=== PATIENT | male | born 1975 | race Caucasian/White ===

== ENCOUNTER → 2016-10-28 | Outpatient (CLI) | payer OTHER ==
--- NOTE | 2016-10-28 12:26 | EST ---
DATE OF SERVICE: 10/28/2016 AGE: 40Y SEX: M HT: 68" WT: 250 lbs. Protocol Gigi: X Other: Stress Stage: 3 Dur. of Exercise: 7:11 *Heart Rate Blood Pressure *Rest: 101 Rest: 110/93 * *Max. Achieved: 157 Maximum BP: 163/95 85% PMHR: 151 100% PMHR: 179 *METS: 8.7 INDICATIONS: Chest pain. MEDICATIONS: Hyzaar, Claritin, aspirin, vitamins. Baseline EKG revealed normal sinus rhythm without significant ST-T changes. Patient walked on standard Gigi protocol for 7 minutes 11 seconds, achieved a maximum heart rate of 157 beats per minute, more than 85% predicted maximum. Had some right shoulder discomfort and right-sided chest discomfort, very atypical, not suggestive of angina. He developed fatigue and shortness of breath. He achieved more than 85% of predicted maximal. There was no evidence of any ST segment changes to indicate ischemia. Rare isolated PVC was noted. By EKG criteria, this is a negative stress test with limited exercise capacity with atypical chest pain.
--- NOTE | 2016-10-28 12:47 | XR ---
EXAMINATION TYPE: XR chest 2V DATE OF EXAM: 10/28/2016 12:41 PM COMPARISON: NONE HISTORY: Chest pain TECHNIQUE: Frontal and lateral views of the chest are obtained. FINDINGS: There is no focal air space opacity. No evidence for pnuemothorax.No pleural effusion. The cardiac silhouette size is within normal limits. The osseous structures are grossly intact. IMPRESSION: 1. No acute cardiopulmonary process.
--- NOTE | 2016-10-29 10:36 | ECHOF ---
Referral Reason: MEASUREMENTS -------- HEIGHT: 172.7 cm WEIGHT: 113.4 kg BP: 110/93 RVIDd: 3.3 cm (< 3.3) IVSd: 0.9 cm (0.6 - 1.1) LVIDd: 5.3 cm (3.9 - 5.3) LVPWd: 1.1 cm (0.6 - 1.1) IVSs: 1.5 cm LVIDs: 3.6 cm LVPWs: 1.6 cm LA Diam: 3.5 cm (2.7 - 3.8) LAESV Index (A-L): 11.78 ml/m Ao Diam: 3.2 cm (2.0 - 3.7) AV Cusp: 2.3 cm (1.5 - 2.6) MV EXCURSION: 11.453 mm (> 18.000) MV EF SLOPE: 40 mm/s (70 - 150) EPSS: 0.9 cm MV E Nav: 0.71 m/s MV DecT: 155 ms MV A Nav: 0.63 m/s MV E/A Ratio: 1.14 FINDINGS -------- Sinus rhythm. This was a technically adequate study. The left ventricular size is normal. Left ventricular wall thickness is normal. Overall left ventricular systolic function is normal with, an EF between 55 - 60 %. The right ventricle is mildly enlarged. Normal LA size by volume 22+/-6 ml/m2. The right atrium is normal in size. The aortic valve is trileaflet and appears structurally normal. The mitral valve is normal. The tricuspid valve appears structurally normal. The pulmonic valve is normal. The aortic root, ascending aorta and aortic arch are normal. IVC Not well visulized. The pericardium is normal. CONCLUSIONS -------- 1. Sinus rhythm. 2. The tricuspid valve appears structurally normal. 3. The pulmonic valve is normal. 4. The aortic root, ascending aorta and aortic arch are normal. 5. The pericardium is normal. 6. This was a technically adequate study. 7. The left ventricular size is normal. 8. Left ventricular wall thickness is normal. 9. The right ventricle is mildly enlarged. 10. Normal LA size by volume 22+/-6 ml/m2. 11. The right atrium is normal in size. 12. The aortic valve is trileaflet and appears structurally normal. 13. The mitral valve is normal. ASSEMBLER [employer]: Iva Meyer RDCS
== END | disposition home or self-care (01) ==
LOC: RADNMMAIN 11:17
PROVIDERS: ATTEND Family Medicine
DX: I10 Essential (primary) hypertension (principal); R07.89 Other chest pain
CPT/HCPCS: 71020; 93017; 93306

== ENCOUNTER 2017-09-05 21:29 | Observation (INO) | payer OTHER ==
[2017-09-05 22:30] LABS: Glucose,Whole Blood 132 mg/dL (75-99)
[2017-09-05 22:36] LABS: Basophils % (A) 1 %; Eosinophils # (A) 0.2 k/uL (0-0.7); Eosinophils % (A) 2 %; HCT 46.6 % (39.0-53.0); HGB 15.7 gm/dL (13.0-17.5); Lymphocytes # (A) 2.6 k/uL (1.0-4.8); Lymphocytes % (A) 30 %; MCH 32.4 pg (25.0-35.0); MCHC 33.6 g/dL (31.0-37.0); MCV 96.6 fL (80.0-100.0); Mean Platelet Volume 7.1; Monocytes # (A) 0.4 k/uL (0-1.0); Monocytes % (A) 5 %; Neutrophils # (A) 5.2 k/uL (1.3-7.7); Neutrophils % (A) 61 %; Platelet Count 230 k/uL (150-450); RBC 4.82 m/uL (4.30-5.90); WBC 8.6 k/uL (3.8-10.6)
[2017-09-05 22:47] LABS: ALT 41 U/L (21-72); AST 37 U/L (17-59); Albumin 4.4 g/dL (3.5-5.0); Alkaline Phosphatase 82 U/L (38-126); Anion Gap 11 mmol/L; Blood Urea Nitrogen 13 mg/dL (9-20); Calcium 9.7 mg/dL (8.4-10.2); Carbon Dioxide 28 mmol/L (22-30); Chloride 101 mmol/L (98-107); Glucose 113 mg/dL (74-99); Potassium 4.2 mmol/L (3.5-5.1); Sodium 140 mmol/L (137-145); Total Bilirubin 0.6 mg/dL (0.2-1.3); Total Protein 7.5 g/dL (6.3-8.2)
--- NOTE | 2017-09-05 23:25 | ED ---
Dizziness HPI - General Chief Complaint: Dizziness Stated Complaint: Blurry vision, dizzy Time Seen by Provider: 09/05/17 23:00 Source: patient, family, RN notes reviewed Mode of arrival: wheelchair Limitations: no limitations - History of Present Illness Initial Comments: Is a 41-year-old male who presents with complaints of one week of blurry vision for distance vision intermittent episodes of chest pain shortness of breath dizziness. He also states he had been urinating blood for about a week there is concern about a kidney stone versus infection he was seen in outpatient clinic apparently the UA was negative for infection he also states that he got up from 8:00 this morning and checked his phone He was 11:00 in the morning he was on the floor that sure how he got there is no injury to report. Currently he has no chest pain shortness of breath he does have some blurred vision with right lateral gaze. Patient is obstructed family history of both CVA and heart disease and his family. MD Complaint: dizziness, lightheadedness, other - Related Data Home Medications Medication Instructions Recorded Confirmed Kristina Killian [place] 1 cap PO DAILY 09/05/17 09/05/17 Aspirin EC [Ecotrin Low Dose] 81 mg PO DAILY 09/05/17 09/05/17 [id number] 1 - 2 tab PO Q4HR PRN 09/05/17 09/05/17 [Excedrin] C-Salts Buffered Vitamin C 1 tsp PO DAILY 09/05/17 09/05/17 Dextroamphetamine/Amphetamine 15 mg PO DAILY 09/05/17 09/05/17 [Adderall] Grass Fed Organ Complex 1 cap PO DAILY 09/05/17 09/05/17 HYDROcodone/APAP 5-325MG [[place] 1 tab PO Q6H PRN 09/05/17 09/05/17 5-325] Losartan/Hydrochlorothiazide 1 tab PO DAILY 09/05/17 09/05/17 [Hyzaar 100-25 Tablet] Phospatidyl Choline 1 cap PO DAILY 09/05/17 09/05/17 Reishi 1 cap PO DAILY 09/05/17 09/05/17 Tamsulosin HCl [Flomax] 0.4 mg PO DAILY 09/05/17 09/05/17 Zinc Picolinate 1 cap PO DAILY 09/05/17 09/05/17 Allergies Allergy/AdvReac Type Severity Reaction Status Date / Time No Known Allergies Allergy Verified 09/05/17 22:23 Review of Systems ROS Statement: Those systems with pertinent positive or pertinent negative responses have been documented in the HPI. ROS Other: All systems not noted in ROS Statement are negative. Past Medical History Past Medical History: Hypertension History of Any Multi-Drug Resistant Organisms: None Reported Past Surgical History: No Surgical Hx Reported Past Psychological History: Anxiety Smoking Status: Never smoker Past Alcohol Use History: None Reported Past Drug Use History: None Reported General Exam - General Exam Comments Initial Comments: This is a well-developed well-nourished awake alert oriented 3 male Limitations: no limitations General appearance: alert, in no apparent distress Head exam: Present: atraumatic, normocephalic, normal inspection Eye exam: Present: normal appearance, PERRL, EOMI. Absent: scleral icterus, conjunctival injection, periorbital swelling ENT exam: Present: normal exam, mucous membranes moist Neck exam: Present: normal inspection. Absent: tenderness, meningismus, lymphadenopathy Respiratory exam: Present: normal lung sounds bilaterally. Absent: respiratory distress, wheezes, rales, rhonchi, stridor Cardiovascular Exam: Present: normal rhythm, tachycardia, normal heart sounds. Absent: systolic murmur, diastolic murmur, rubs, gallop, clicks GI/Abdominal exam: Present: soft, normal bowel sounds. Absent: distended, tenderness, guarding, rebound, rigid Extremities exam: Present: normal inspection, full ROM, normal capillary refill. Absent: tenderness, pedal edema, joint swelling, calf tenderness Back exam: Present: normal inspection Neurological exam: Present: alert, oriented X3, CN II-XII intact Psychiatric exam: Present: normal affect, normal mood Skin exam: Present: warm, dry, intact, normal color. Absent: rash Course Vital Signs 09/05/17 09/05/17 21:34 23:53 Temperature 97.7 F Pulse Rate 120 H 104 H Respiratory 18 18 Rate Blood Pressure 119/80 156/87 O2 Sat by Pulse 100 98 Oximetry - Reevaluation(s) Reevaluation #1: 09/06/17 01:02 Reevaluation patient reveals no change in his status at this time he has no new symptoms. EKG Findings - EKG Results: EKG: interpreted by ISAK, sinus rhythm (Sinus tachycardia rate of 113 MO interval 150 QRS duration 66 QT since QTC of 336/[address]-T wave changes) Medical Decision Making - Medical Decision Making I did discuss the findings with the patient and family members as well as Dr. Woodson. Patient will be admitted for evaluation of syncope and chest pain. - Lab Data Result diagrams: 09/05/17 22:12 09/05/17 22:12 Lab Results 09/05/17 09/05/17 09/05/17 Range/Units 22:12 22:12 22:12 WBC 8.6 (3.8-10.6) k/uL RBC 4.82 (4.30-5.90) m/uL Hgb 15.7 (13.0-17.5) gm/dL Hct 46.6 (39.0-53.0) % MCV 96.6 (80.0-100.0) fL MCH 32.4 (25.0-35.0) pg MCHC 33.6 (31.0-37.0) g/dL RDW 13.0 (11.5-15.5) % Plt Count 230 (150-450) k/uL Neutrophils % 61 % Lymphocytes % 30 % Monocytes % 5 % Eosinophils % 2 % Basophils % 1 % Neutrophils # 5.2 (1.3-7.7) k/uL Lymphocytes # 2.6 (1.0-4.8) k/uL Monocytes # 0.4 (0-1.0) k/uL Eosinophils # 0.2 (0-0.7) k/uL Basophils # 0.0 (0-0.2) k/uL PT 10.5 (9.0-12.0) sec INR 1.1 (<1.2) D-Dimer (<0.60) mg/L FEU Sodium 140 (137-145) mmol/L Potassium 4.2 (3.5-5.1) mmol/L Chloride 101 (98-107) mmol/L Carbon Dioxide 28 (22-30) mmol/L Anion Gap 11 mmol/L BUN 13 (9-20) mg/dL Creatinine 0.80 (0.66-1.25) mg/dL Est GFR (CKD-EPI)AfAm >90 (>60 ml/min/1.73 sqM) Est GFR (CKD-EPI)NonAf >90 (>60 ml/min/1.73 sqM) Glucose 113 H (74-99) mg/dL POC Glucose (mg/dL) (75-99) mg/dL POC Glu Splicing Supervisor ID Calcium 9.7 (8.4-10.2) mg/dL Magnesium (1.6-2.3) mg/dL Total Bilirubin 0.6 (0.2-1.3) mg/dL AST 37 (17-59) U/L ALT 41 (21-72) U/L Alkaline Phosphatase 82 (38-126) U/L Troponin I (0.000-0.034) ng/mL Total Protein 7.5 (6.3-8.2) g/dL Albumin 4.4 (3.5-5.0) g/dL TSH (0.465-4.680) mIU/L 09/05/17 09/05/17 09/05/17 Range/Units 22:12 22:12 22:12 WBC (3.8-10.6) k/uL RBC (4.30-5.90) m/uL Hgb (13.0-17.5) gm/dL Hct (39.0-53.0) % MCV (80.0-100.0) fL MCH (25.0-35.0) pg MCHC (31.0-37.0) g/dL RDW (11.5-15.5) % Plt Count (150-450) k/uL Neutrophils % % Lymphocytes % % Monocytes % % Eosinophils % % Basophils % % Neutrophils # (1.3-7.7) k/uL Lymphocytes # (1.0-4.8) k/uL Monocytes # (0-1.0) k/uL Eosinophils # (0-0.7) k/uL Basophils # (0-0.2) k/uL PT (9.0-12.0) sec INR (<1.2) D-Dimer 0.21 (<0.60) mg/L FEU Sodium (137-145) mmol/L Potassium (3.5-5.1) mmol/L Chloride (98-107) mmol/L Carbon Dioxide (22-30) mmol/L Anion Gap mmol/L BUN (9-20) mg/dL Creatinine (0.66-1.25) mg/dL Est GFR (CKD-EPI)AfAm (>60 ml/min/1.73 sqM) Est GFR (CKD-EPI)NonAf (>60 ml/min/1.73 sqM) Glucose (74-99) mg/dL POC Glucose (mg/dL) (75-99) mg/dL POC Glu Splicing Supervisor ID Calcium (8.4-10.2) mg/dL Magnesium 2.2 (1.6-2.3) mg/dL Total Bilirubin (0.2-1.3) mg/dL AST (17-59) U/L ALT (21-72) U/L Alkaline Phosphatase (38-126) U/L Troponin I <0.012 (0.000-0.034) ng/mL Total Protein (6.3-8.2) g/dL Albumin (3.5-5.0) g/dL TSH 0.891 (0.465-4.680) mIU/L 09/05/17 Range/Units 22:26 WBC (3.8-10.6) k/uL RBC (4.30-5.90) m/uL Hgb (13.0-17.5) gm/dL Hct (39.0-53.0) % MCV (80.0-100.0) fL MCH (25.0-35.0) pg MCHC (31.0-37.0) g/dL RDW (11.5-15.5) % Plt Count (150-450) k/uL Neutrophils % % Lymphocytes % % Monocytes % % Eosinophils % % Basophils % % Neutrophils # (1.3-7.7) k/uL Lymphocytes # (1.0-4.8) k/uL Monocytes # (0-1.0) k/uL Eosinophils # (0-0.7) k/uL Basophils # (0-0.2) k/uL PT (9.0-12.0) sec INR (<1.2) D-Dimer (<0.60) mg/L FEU Sodium (137-145) mmol/L Potassium (3.5-5.1) mmol/L Chloride (98-107) mmol/L Carbon Dioxide (22-30) mmol/L Anion Gap mmol/L BUN (9-20) mg/dL Creatinine (0.66-1.25) mg/dL Est GFR (CKD-EPI)AfAm (>60 ml/min/1.73 sqM) Est GFR (CKD-EPI)NonAf (>60 ml/min/1.73 sqM) Glucose (74-99) mg/dL POC Glucose (mg/dL) 132 H (75-99) mg/dL POC Glu Splicing Supervisor Alia Quinonez Calcium (8.4-10.2) mg/dL Magnesium (1.6-2.3) mg/dL Total Bilirubin (0.2-1.3) mg/dL AST (17-59) U/L ALT (21-72) U/L Alkaline Phosphatase (38-126) U/L Troponin I (0.000-0.034) ng/mL Total Protein (6.3-8.2) g/dL Albumin (3.5-5.0) g/dL TSH (0.465-4.680) mIU/L - Radiology Data Radiology results: report reviewed (I did review the imaging and reports no acute findings.), image reviewed Critical Care Time Critical Care Time: Yes Critical Care Time: 35 minutes of critical care time which includes initial presentation with history physical labs x-rays reevaluation the patient. Discussed with patient family regarding the findings. Discussion with the admitting physician. Admission orders and documentation of the same. Disposition Clinical Impression: Syncope and collapse, Chest pain, Sinus tachycardia Disposition: ADMITTED IP TO THIS [facility] Condition: Stable Referrals: Elliot Molina DO [Primary Care Provider] - 1-2 days
[2017-09-05 23:29] LABS: INR 1.1 (<1.2); Prothrombin Time 10.5 sec (9.0-12.0)
--- NOTE | 2017-09-05 23:39 | XR ---
EXAMINATION TYPE: XR chest 2V DATE OF EXAM: 09/05/2017 COMPARISON: 10/28/2016 HISTORY: Cough TECHNIQUE: Frontal and lateral views of the chest are obtained. FINDINGS: Heart and mediastinum are normal. Lungs are clear. Diaphragm is normal. There are chest le ads. Bony thorax is intact. There is no sign of pleural effusion. IMPRESSION: Normal chest. No change.
--- NOTE | 2017-09-05 23:40 | CT ---
EXAMINATION TYPE: CT brain wo con DATE OF EXAM: 09/05/2017 COMPARISON: NONE HISTORY: dizzy CT DLP: 1070.90 mGycm. Automated Exposure Control for Dose Reduction was Utilized. TECHNIQUE: CT scan of the head is performed without contrast. FINDINGS: Ventricles and sulci appear normal. There is no mass effect nor midline shift. There is no sign of intracranial hemorrhage. The calvarium appears intact. CONCLUSION: Negative CT scan of the brain.
[2017-09-05 23:46] LABS: Magnesium 2.2 mg/dL (1.6-2.3)
[2017-09-06] MEDS: SODIUM CHLORIDE 0.9% 1,000 ML IV SCH (01:23)
[2017-09-06] MEDS: NON-FORMULARY DRUG (Dextroamphetamine/Amphetamine [Adderall] 15 MG) PO SCH (08:46)
[2017-09-06] MEDS ORDERED: TAMSULOSIN 0.4 MG CAP.ER.24H PO SCH (09:00)
[2017-09-06] MEDS ORDERED: LOSARTAN-HCTZ 50-12.5 MG 1 EACH TAB PO SCH (09:00)
[2017-09-06] MEDS: valACYclovir HCL 1,000 MG TABLET PO SCH ×2 (10:51→21:31)
--- NOTE | 2017-09-06 12:13 | CONS ---
CONSULTATION Mark Khalil is a 41-year-old male patient who has been complaining of blurring of vision for distant vision intermittently as well as dizziness. He stated he got up in the morning and then apparently passed out and was on the floor until 11 a.m. almost 3 to 4 hours. He also had blood in his urine for about a week. MEDICATIONS: Medications at home include aspirin, Adderall, losartan hydrochlorothiazide and multiple other medications over the counter. ALLERGIES: No known drug allergies. REVIEW OF SYSTEMS: No fever, chills, or rigors. No cough or expectoration. No nausea, vomiting, diarrhea. He did have hematuria. We are not sure what happened, but he states he found himself on the floor lying on the floor and almost 3 hours. PAST HISTORY: Past history of hypertension, anxiety. SOCIAL HISTORY: No history of alcohol use. No history of smoking. PHYSICAL EXAMINATION: On examination, he is afebrile, 97.7 degrees Fahrenheit, pulse rate was 104 beats per minute, blood pressure 119/80 mmHg, pulse ox normal. Heart sounds S1, S2 are normal. No murmurs, no gallops, no rub. Head and neck examination is normal. Extremities are warm, no edema. LABS: Labs are reviewed. Hemoglobin is normal. Electrolytes are normal. The white count was normal. Cardiac enzymes are normal. TSH was pending. D-dimer was normal. IMPRESSION: One episode of loss of consciousness that was quite prolonged. The 12-lead ECG shows sinus tachycardia. No ST-segment abnormalities. No arrhythmias were noted so far. His CT of the brain was negative. Chest x-ray was normal. SUGGEST: Continue telemetry monitoring, 2-D echo and Doppler study. Continue antihypertensive therapy and neurologic workup. MMODL / IJN: [id number] /
[2017-09-06] MEDS: HYDROcodone/APAP 5-325MG 1 EACH TAB PO PRN ×2 (14:59→21:31)
--- NOTE | 2017-09-06 15:35 | US ---
EXAMINATION TYPE: US carotid duplex BILAT DATE OF EXAM: 09/06/2017 COMPARISON: NONE CLINICAL HISTORY: Stenosis. EXAM MEASUREMENTS: RIGHT: Peak Systolic Velocity (PSV) cm/sec ----- Right CCA: 81.7 ----- Right ICA: 58.6 ----- Right ECA: 103.0 ICA/CCA ratio: 0.7 RIGHT: End Diastole cm/sec ----- Right CCA: 25.3 ----- Right ICA: 21.2 ----- Right ECA: 15.0 LEFT: Peak Systolic Velocity (PSV) cm/sec ----- Left CCA: 87.8 ----- Left ICA: 60.0 ----- Left ECA: 88.7 ICA/CCA ratio: 0.7 LEFT: End Diastole cm/sec ----- Left CCA: 20.2 ----- Left ICA: 28.1 ----- Left ECA: 12.0 VERTEBRALS (direction of flow): Right Vertebral: Antegrade Left Vertebral: Antegrade Rhythm: Normal No significant velocity elevations, minimal plaque. IMPRESSION: 1. Mild plaquing and intimal thickening without significant flow-limiting stenosis. Criteria for Assigning % of Stenosis / Diameter reduction (Estimation based on the indirect measurements of the internal carotid artery velocities (ICA PSV). 1. Normal (no stenosis)=ICA PSV < 125 cm/s: ratio < 2.0: ICA EDV<40 cm/s. 2. Less than 50% stenosis=ICA PSV < 125 cm/s: ratio < 2.0: ICA EDV<40 cm/s. 3. 50 to 69% stenosis=ICA PSV of 125 to 230 cm/s: ration 2.0 ? 4.0: ICA EDV 40-100 cm/s. 4. Greater than 70% stenosis to near occlusion= ICA PSV > 230 cm/s: ratio > 4.0: ICA EDV > 100 cm/s. 5. Near occlusion= ICA PSV velocities may be low or undetectable: variable ratio and ICA EDV. 6. Total occlusion=unable to detect flow.
--- NOTE | 2017-09-06 18:46 | ECHOF ---
Referral Reason:Thrombus MEASUREMENTS -------- HEIGHT: 175.3 cm WEIGHT: 113.4 kg BP: 131/78 RVIDd: 2.8 cm (< 3.3) IVSd: 1.1 cm (0.6 - 1.1) LVIDd: 2.5 cm (3.9 - 5.3) LVPWd: 1.2 cm (0.6 - 1.1) IVSs: 1.6 cm LVIDs: 1.6 cm LVPWs: 1.8 cm Ao Diam: 3.3 cm (2.0 - 3.7) AV Cusp: 1.8 cm (1.5 - 2.6) LA Diam: 2.9 cm (2.7 - 3.8) MV EXCURSION: 17.570 mm (> 18.000) MV EF SLOPE: 123 mm/s (70 - 150) EPSS: 0.9 cm MV E Nav: 0.70 m/s MV DecT: 159 ms MV A Nav: 0.73 m/s MV E/A Ratio: 0.97 RAP: 5.00 mmHg RVSP: 17.74 mmHg FINDINGS -------- Sinus rhythm. This was a technically difficult study with suboptimal views. The left ventricular size is normal. Left ventricular wall thickness is normal. Overall left vent ricular systolic function is normal with, an EF between 55 - 60 %. The right ventricle is normal in size. The left atrium is normal in size. The right atrium is normal in size. The aortic valve is trileaflet, and appears structurally normal. No aortic stenosis or regurgitation. There is trace mitral regurgitation. Trace tricuspid regurgitation present. The right ventricular systolic pressure, as measured by Dopp ler, is 17.74mmHg. Pulmonic valve appears structurally normal. The aortic root size is normal. The pericardium is normal. CONCLUSIONS -------- 1. Sinus rhythm. 2. This was a technically difficult study with suboptimal views. 3. The left ventricular size is normal. 4. Left ventricular wall thickness is normal. 5. Overall left ventricular systolic function is normal with, an EF between 55 - 60 %. 6. The right ventricle is normal in size. 7. The left atrium is normal in size. 8. The right atrium is normal in size. 9. LUMASON USED 10. The aortic valve is trileaflet, and appears structurally normal. No aortic stenosis or regurgitat ion. 11. There is trace mitral regurgitation. 12. Trace tricuspid regurgitation present. 13. The right ventricular systolic pressure, as measured by Doppler, is 17.74mmHg. 14. Pulmonic valve appears structurally normal. 15. The aortic root size is normal. 16. The pericardium is normal. CUSTOM FRAME ASSEMBLER: Brittni Lema RDCS
--- NOTE | 2017-09-06 19:55 | P.HPIM ---
History of Present Illness H&P Date: 09/06/17 Chief Complaint: Syncope This is a 41-year-old gentleman patient of Dr. Molina with multiple complaints on presentation, he has underlying history of hypertension, kidney stones, admitted to the emergency room with complaints of blurred vision, for the past several days now at least 2 weeks, he sought to have his eyes checked and got new glasses, this did not resolve the issue. Patient complains of blurred vision rather than diplopia, along with shortness of breath, and hematuria. Patient also has chest pain chest discomfort, and was thinking that his ribs are cracking or popping, patient denies any trauma, recently he was started on an antibiotic for urinary tract infection, against a kidney stone. They have called that the patient does not require any antibiotic eyes the cultures are negative. 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 Patient also mentions that this is a recurrent nature for him, and is triggered by bending or squatting. No history of seizures, he is on diuretics, and Adderall. He was admitted through the emergency room with the syncopal events, dizziness, and blurred vision consult were made with neurology and cardiology, MRI of the brain was requested, carotid Dopplers shows no hemodynamically significant stenosis, echocardiogram shows normal sinus rhythm EF 55-60%, no aortic stenosis , mild TR and mild MR, no pericardial effusion LV thickness is normal without any hypertrophic change CT of the brain shows no acute bleed or ischemic event, chest x-ray no change normal chest x-ray Review of Systems Constitutional: Reports as per HPI, Denies anorexia, Denies chills, Denies chronic headaches, Denies chronic pain, Denies daytime sleepiness, Denies fatigue, Denies fever, Denies lethargy, Denies malaise, Denies night sweats, Denies poor appetite, Denies sweats, Denies weakness, Denies weight gain, Denies weight loss Ears, nose, mouth and throat: Reports as per HPI, Denies ant. neck pain, Denies bleeding gums, Denies dental pain, Denies dysphagia, Denies epistaxis, Denies headache, Denies hoarseness, Denies mouth pain, Denies nasal congestion, Denies nasal discharge, Denies neck fullness/pressure, Denies neck lump, Denies nose pain, Denies odynophagia, Denies post-nasal drip, Denies sinus pain, Denies sinus pressure, Denies swelling in mouth, Denies swelling in throat, Denies sore throat, Denies vertigo, Denies voice changes Cardiovascular: Reports as per HPI, Reports lightheadedness, Reports syncope, Denies chest pain, Denies claudication, Denies decreased exercise tolerance, Denies dyspnea on exertion, Denies edema, Denies high blood pressure, Denies irregular heart beat, Denies leg edema, Denies orthopnea, Denies palpitations, Denies paroxysmal nocturnal dyspnea, Denies phlebitis, Denies rapid heart beat, Denies shortness of breath Respiratory: Reports as per HPI, Denies congestion, Denies cough, Denies cough with sputum, Denies dyspnea, Denies excessive sputum, Denies hemoptysis, Denies home oxygen, Denies pain, Denies pain on inspiration, Denies pleurisy, Denies respiratory infections, Denies sleep apnea, Denies snoring, Denies wheezing Gastrointestinal: Reports as per HPI Genitourinary: Reports as per HPI, Denies decreased libido, Denies difficulties fathering child, Denies discharge, Denies dysuria, Denies erectile dysfunction, Denies flank pain, Denies genital pain, Denies genital sores, Denies hematuria, Denies impotence, Denies incontinence, Denies kidney stones, Denies nocturia, Denies polyuria, Denies testicular lump, Denies testicular pain, Denies urinary frequency, Denies urinary hesitancy, Denies urinary retention Musculoskeletal: Reports as per HPI, Denies arm numbness/tingling, Denies atrophy, Denies fractures, Denies frequent falls, Denies gait dysfunction, Denies hot joints, Denies leg numbness/tingling, Denies limitation of motion, Denies loss of height, Denies low back pain, Denies morning stiffness, Denies muscle cramps, Denies muscle weakness, Denies myalgias, Denies neck pain, Denies neck stiffness, Denies prior amputations, Denies redness of joints, Denies shooting arm pain, Denies shooting leg pain Integumentary: Reports as per HPI, Denies acne, Denies boils, Denies brittle nails, Denies change in hair/nails, Denies color changes, Denies darkening of skin, Denies depigmentation, Denies dryness, Denies foot/leg ulcers, Denies growths, Denies hirsutism, Denies lesions, Denies onychomycosis, Denies pruritus , Denies rash, Denies sores, Denies striae, Denies unusual bruising, Denies wounds Neurological: Reports as per HPI, Denies aphasia, Denies ataxia, Denies balance difficulties, Denies burning pain, Denies change in mentation, Denies change in smell/taste, Denies change in speech, Denies confusion, Denies convulsions, Denies double vision, Denies gait dysfunction, Denies head injury, Denies headaches, Denies hearing difficulties, Denies lack of coordination, Denies loss of vision, Denies memory loss, Denies migraines, Denies motor disturbance, Denies numbness, Denies paralysis, Denies paresthesias, Denies seizures, Denies sensory deficit, Denies spasticity, Denies syncope, Denies tic, Denies tingling , Denies transient paralysis, Denies tremors, Denies vertigo, Denies weakness, Denies visual changes Psychiatric: Reports as per HPI, Denies anhedonia, Denies anxiety, Denies anxiety attacks, Denies change in appetite, Denies change in libido, Denies change in sleep habits, Denies confusion, Denies depression, Denies difficulty concentrating, Denies disorientation, Denies hallucinations, Denies hopelessness , Denies hypersomnia, Denies insomnia, Denies irritability, Denies memory loss, Denies mood swings, Denies paranoia, Denies sadness/tearfulness, Denies sleep disturbances, Denies suicidal ideation Endocrine: Reports as per HPI, Denies cold intolerance, Denies deepening of the voice, Denies excessive sweating, Denies excessive thirst, Denies fatigue, Denies flushing, Denies heat intolerance, Denies high blood sugars, Denies increase in ring/shoe/hat size, Denies low blood sugars, Denies nocturia, Denies palpitations, Denies polydipsia, Denies polyphagia, Denies polyuria, Denies proptosis, Denies recent glucocorticoid use, Denies thyroid mass, Denies weight change Hematologic/Lymphatic: Reports as per HPI, Denies easy bleeding, Denies easy bruising, Denies lymphadenopathy, Denies lymphedema, Denies thrombophilia Allergic/Immunologic: Reports as per HPI, Denies allergic rhinitis, Denies anaphylaxis, Denies angioedema, Denies gluten intolerance, Denies persistent infections, Denies seasonal allergies, Denies urticaria, Denies wheezing Past Medical History Past Medical History: Hypertension Additional Past Medical History / Comment(s): kidney stones, patient states he used to be an insulin dependent diabetic but he since has lost weight and does not take any medications for diabetes History of Any Multi-Drug Resistant Organisms: None Reported Past Surgical History: No Surgical Hx Reported Past Anesthesia/Blood Transfusion Reactions: No Reported Reaction Additional Past Anesthesia/Blood Transfusion Reaction / Comment(s): He is scheduled to have colonoscopy with Dr. gunderson on September 08, secondary to hemorrhoid bleed Past Psychological History: Anxiety Smoking Status: Never smoker Past Alcohol Use History: None Reported Past Drug Use History: None Reported Additional History: Mother has diabetes mellitus, hypertension, father alive, has CAD and hypertension, 1 brother healthy, 1 sister healthy, no daughters no signs - Past Family History Father Family Medical History: CVA/TIA, Diabetes Mellitus Mother Family Medical History: Cancer Additional Family Medical History / Comment(s): Emphysema Medications and Allergies Home Medications Medication Instructions Recorded Confirmed Type [place] Padilla[place] Parnell 1 cap PO DAILY 09/05/17 09/06/17 History Aspirin EC [Ecotrin Low Dose] 81 mg PO DAILY 09/05/17 09/06/17 History [id number]-Lqdt [id number] 1 - 2 tab PO Q4HR PRN 09/05/17 09/06/17 History [Excedrin] C-Salts Buffered Vitamin C 1 tsp PO DAILY 09/05/17 09/06/17 History Dextroamphetamine/Amphetamine 15 mg PO DAILY 09/05/17 09/06/17 History [Adderall] Grass Fed Organ Complex 1 cap PO DAILY 09/05/17 09/06/17 History HYDROcodone/APAP 5-325MG [[place] 1 tab PO Q6H PRN 09/05/17 09/06/17 History 5-325] Losartan/Hydrochlorothiazide 1 tab PO DAILY 09/05/17 09/06/17 History [Hyzaar 100-25 Tablet] Phospatidyl Choline 1 cap PO DAILY 09/05/17 09/06/17 History Reishi 1 cap PO DAILY 09/05/17 09/06/17 History Tamsulosin HCl [Flomax] 0.4 mg PO DAILY 09/05/17 09/06/17 History Zinc Picolinate 1 cap PO DAILY 09/05/17 09/06/17 History ALPRAZolam [Xanax] 0.5 mg PO Q8HR 09/06/17 09/06/17 History Allergies Allergy/AdvReac Type Severity Reaction Status Date / Time No Known Allergies Allergy Verified 09/06/17 04:34 Physical Exam Vitals: Vital Signs Temp Pulse Pulse Pulse Pulse Resp BP 09/06/17 16:35 115 H 09/06/17 16:30 95 09/06/17 16:00 16 09/06/17 14:58 98.3 F 106 H 16 09/06/17 11:37 97 F L 76 16 09/06/17 08:35 98.8 F 112 H 83 16 09/06/17 05:22 108 H 16 09/06/17 04:38 98 F 91 18 146/90 09/06/17 02:43 100 20 121/86 09/06/17 01:24 103 H 18 148/98 09/05/17 23:53 104 H 18 156/87 09/05/17 21:34 97.7 F 120 H 18 119/80 BP BP BP BP Pulse Ox 09/06/17 16:35 110/74 09/06/17 16:30 116/69 09/06/17 16:00 09/06/17 14:58 121/66 96 09/06/17 11:37 118/78 96 09/06/17 08:35 154/55 119/66 96 09/06/17 05:22 141/91 126/66 131/78 97 09/06/17 04:38 97 09/06/17 02:43 100 09/06/17 01:24 98 09/05/17 23:53 98 09/05/17 21:34 100 Intake and Output 09/06/17 09/06/17 09/06/17 06:59 14:59 22:59 Intake Total 540 Balance 540 Intake: Oral 540 Other: Voiding Method Toilet Toilet # Voids 1 3 Weight 113.2 kg - Constitutional General appearance: cooperative, no acute distress, obese - EENT Eyes: anicteric sclerae, EOMI, PERRLA ENT: NA/AT, normal oropharynx - Neck Neck: normal ROM - Respiratory Respiratory: bilateral: CTA, negative: diminished, dullness, rales, wheezing - Cardiovascular Rhythm: regular Heart sounds: normal: S1, S2 Abnormal Heart Sounds: no systolic murmur, no diastolic murmur, no rub, no S3 Gallop, no S4 Gallop, no click, no other - Gastrointestinal General gastrointestinal: normal bowel sounds, soft - Integumentary Integumentary: normal, normal turgor - Neurologic Neurologic: CNII-XII intact, focal deficits (None) - Musculoskeletal Musculoskeletal: gait normal, strength equal bilaterally (Normoactive DTRs, normal hearing aid assistant normal sensation) - Psychiatric Psychiatric: A&O x's 3, appropriate affect, intact judgment & insight Results CBC & Chem 7: 09/05/17 22:12 09/05/17 22:12 Labs: Abnormal Lab Results - Last 24 Hours (Table) 09/05/17 09/05/17 Range/Units 22:12 22:26 Glucose 113 H (74-99) mg/dL POC Glucose (mg/dL) 132 H (75-99) mg/dL Laboratory Results WBC 8.6 k/uL (3.8-10.6) 09/05/17 22:12 RBC 4.82 m/uL (4.30-5.90) 09/05/17 22:12 Hgb 15.7 gm/dL (13.0-17.5) 09/05/17 22:12 Hct 46.6 % (39.0-53.0) 09/05/17 22:12 MCV 96.6 fL (80.0-100.0) 09/05/17 22:12 MCH 32.4 pg (25.0-35.0) 09/05/17 22:12 MCHC 33.6 g/dL (31.0-37.0) 09/05/17 22:12 RDW 13.0 % (11.5-15.5) 09/05/17 22:12 Plt Count 230 k/uL (150-450) 09/05/17 22:12 Neutrophils % 61 % 09/05/17 22:12 Lymphocytes % 30 % 09/05/17 22:12 Monocytes % 5 % 09/05/17 22:12 Eosinophils % 2 % 09/05/17 22:12 Basophils % 1 % 09/05/17 22:12 Neutrophils # 5.2 k/uL (1.3-7.7) 09/05/17 22:12 Lymphocytes # 2.6 k/uL (1.0-4.8) 09/05/17 22:12 Monocytes # 0.4 k/uL (0-1.0) 09/05/17 22:12 Eosinophils # 0.2 k/uL (0-0.7) 09/05/17: Basophils # 0.0 k/uL (0-0.2) 09/05/17 22:12 PT 10.5 sec (9.0-12.0) 09/05/17 22:12 INR 1.1 (<1.2) 09/05/17 22:12 D-Dimer 0.21 mg/L FEU (<0.60) 09/05/17 22:12 Sodium 140 mmol/L (137-145) 09/05/17 22:12 Potassium 4.2 mmol/L (3.5-5.1) 09/05/17 22:12 Chloride 101 mmol/L (98-107) 09/05/17 22:12 Carbon Dioxide 28 mmol/L (22-30) 09/05/17 22:12 Anion Gap 11 mmol/L 09/05/17 22:12 BUN 13 mg/dL (9-20) 09/05/17 22:12 Creatinine 0.80 mg/dL (0.66-1.25) 09/05/17 22:12 Est GFR (CKD-EPI)AfAm >90 (>60 ml/min/1.73 sqM) 09/05/17 22:12 Est GFR (CKD-EPI)NonAf >90 (>60 ml/min/1.73 sqM) 09/05/17 22:12 Glucose 113 mg/dL (74-99) H 09/05/17 22:12 POC Glucose (mg/dL) 132 mg/dL (75-99) H 09/05/17 22:26 POC Glu Abrasive Worker Alia Quinonez 09/05/17 22:26 Calcium 9.7 mg/dL (8.4-10.2) 09/05/17 22: Magnesium 2.2 mg/dL (1.6-2.3) 09/05/17 22:12 Total Bilirubin 0.6 mg/dL (0.2-1.3) 09/05/17 22:12 AST 37 U/L (17-59) 09/05/17 22:12 ALT 41 U/L (21-72) 09/05/17 22: Alkaline Phosphatase 82 U/L (38-126) 09/05/17: Troponin I <0.012 ng/mL (0.000-0.034) 09/05/17: Total Protein 7.5 g/dL (6.3-8.2) 09/05/17: Albumin 4.4 g/dL (3.5-5.0) 09/05/17: TSH 0.891 mIU/L (0.465-4.680) 09/05/17 22:12 Thrombosis Risk Factor Assmnt - DVT/VTE Prophylaxis DVT/VTE Prophylaxis: Low risk, early ambulation encouraged - Choose All That Apply Any of the Below Risk Factors Present?: Yes Each Factor Represents 1 point: Age 41-60 years, Obesity (BMI >25) Other Risk Factors: No Other congenital or acquired thrombophilia - If yes, enter type in comment: No Thrombosis Risk Factor Assessment Total Risk Factor Score: 2 Thrombosis Risk Factor Assessment Level: Low Risk Assessment and Plan Plan: 1. Acute syncope with prolonged loss of consciousness, patient has events that he could reproduce, suspicious of for orthostasis, we'll going to withhold diuretics, check for orthostatic vital signs, hydrate the patient with IV fluids. Patient was seen consultation by cardiology and neurology, to evaluate for cardiac arrhythmias, EEG of the brain would be done, MRI of the brain, to evaluate for CVA, and demyelinating diseases however this is less likely 2. Blurred vision, most likely secondary to amblyopia, also has nighttime vision change, patient was counseled on vitamin A supplementation, he also has homeopathic polypharmacy with phosphatidylcholine, where she, grass fed organ complex, zinc picolinate, last concept I Sunita 3. Hypertension, patient's normotensive, we'll going to discontinue hydrochlorothiazide, and switch to losartan 100 mg daily 4. Daily headaches, tension headache against impaired congestive sleep, with his BMI, patient can benefit from additional studies, including outpatient sleep study, counseled regarding the use of excedrin pecially late in the afternoon and evening use, MRI to be done to evaluate for anatomical problems 5. ADD/ADHD, on Adderall 6. gi prophylaxis 7 dvt prophylaxis ambulation Patient is To As an observation 23 hour hold
[2017-09-06] MEDS ORDERED: ATORVASTATIN 80 MG TAB PO SCH (21:00)
[2017-09-06] MEDS ORDERED: ALPRAZolam 0.5 MG TAB PO PRN (21:20)
--- NOTE | 2017-09-06 21:40 | CONS ---
CONSULTATION Date of consultation 09/06/2017. CHIEF COMPLAINT: Syncope. HISTORY OF PRESENT ILLNESS: Mr. Khalil is a pleasant 41-year-old male, who is being evaluated by the neurology service per the request of Dr. Woodson for a syncopal spell. The patient was brought into [facility] Emergency Room mainly with the complaints of blurred vision and atypical chest pain and shortness of breath. In the emergency room, he also reported that he believes he had a syncopal episode. The patient remembers being in his bedroom and then became very lightheaded and fell to the ground. He is unclear as far as how long he was unconscious. When he woke up on the floor, he knew where he was at. He had some generalized body aches. No sphincter incontinence occurred and no tongue biting occurred. He denies any previous history of syncope, but he states that he frequently becomes lightheaded when he stands up from a seated position or when he stands up after bending forward to reach for something. A CT scan of the brain was done, which was normal. A carotid Doppler was done, which showed minimal plaques with no hemodynamically significant stenosis. His CBC, cardiac enzymes, comprehensive metabolic profile, TSH and INR were all reviewed and were normal. The patient was admitted for further workup and management and Cardiology has been consulted. The patient is on telemetry. At the time of my evaluation, he is lying in his bed and appears to be in no acute distress. He is still complaining of some blurred vision that waxes and wanes and he believes it is affecting both eyes. He denies any lateralizing numbness or weakness and denies any headache. He has been having some episodes of tachycardia with no arrhythmias detected. PAST MEDICAL HISTORY: Hypertension, anxiety disorder. SOCIAL HISTORY: He denies any tobacco, alcohol or drug use. FAMILY HISTORY: Noncontributory. HOME MEDICATIONS: Reviewed in the chart. ALLERGIES: No known drug allergies. REVIEW OF SYSTEMS: CONSTITUTIONAL: Negative. EYES: As mentioned above. ENT: Negative. CARDIOVASCULAR: As mentioned above. RESPIRATORY: As mentioned above. NEUROLOGICAL: As mentioned above. GASTROINTESTINAL: Negative. GENITOURINARY: Negative. MUSCULOSKELETAL: Positive for occasional joint pain. ENDOCRINE: Negative. DERMATOLOGICAL: Negative. PSYCHIATRIC: Positive for history of anxiety disorder. PHYSICAL EXAM: Vital signs show a temperature of 98.3, pulse 133, respirations 16, blood pressure 114/71. GENERAL APPEARANCE: The patient is a well-developed male who appears to be in no acute distress.. HEENT: Normocephalic, atraumatic. No facial asymmetry is seen. Extraocular muscles are intact. NECK: Supple with no masses felt. CARDIOVASCULAR: Tachycardic rate with a normal rhythm. ABDOMEN: Nontender nondistended. Extremities showed no edema or clubbing. NEUROLOGICAL: The patient is alert, aware and oriented x3. Speech and language are normal. Strength is full in all 4 extremities. Sensory was normal to light touch in all 4 extremities. No facial asymmetry is seen on cranial nerve testing. No tremors or seizure-like activity is seen. IMPRESSION: 1. Syncopal spell. 2. Blurred vision. 3. Atypical chest pain. 4. Tachycardia. RECOMMENDATION: The patient did have an unwitnessed syncopal episode. According to the patient, this was preceded by a feeling of lightheadedness. The episode is more consistent with a cardiovascular etiology, but an EEG will be ordered to rule out any epileptic activity. Continue telemetry monitoring. Cardiology has been consulted. I did review his CT scan of the brain and carotid Doppler which showed no significant abnormalities. Continue neuro checks. Continue the rest of your current workup and management. As for his blurred vision, I do recommend an Ophthalmology consultation, as this has been present for several weeks, although it waxes and wanes. I will continue to follow with you. Further recommendations to follow. Thank you for allowing me to participate in the care of your patient. If you have any questions, please feel free to contact me. MMODL / IJN: [id number] /
[2017-09-07] MEDS ORDERED: ALPRAZolam 0.5 MG TAB PO SCH
[2017-09-07] MEDS: ASPIRIN 325 MG TAB PO SCH ×2 (03:15→08:09)
[2017-09-07] MEDS: SODIUM CHLORIDE 0.9% 1,000 ML IV SCH (03:15)
[2017-09-07 03:53] LABS: Cholesterol 136 mg/dL (<200); HDL Cholesterol 43 mg/dL (40-60); LDL Cholesterol,Calculated 56 mg/dL (0-99); Triglycerides 186 mg/dL (<150)
[2017-09-07] MEDS: NON-FORMULARY DRUG (Dextroamphetamine/Amphetamine [Adderall] 15 MG) PO SCH (08:07)
[2017-09-07] MEDS: valACYclovir HCL 1,000 MG TABLET PO SCH (08:09)
[2017-09-07] MEDS ORDERED: LOSARTAN 50 MG TAB PO SCH ×2 (09:00→12:44)
--- NOTE | 2017-09-07 10:02 | P.PN ---
Progress Note - Text Follow-up evaluation No arrhythmias Normal cardiac enzymes Normal echo Prolonged period of unconsciousness or altered consciousness with blurred vision Sinus tachycardia noted Continue monitoring on telemetry and please call if there is any cardiac issue identified on telemetry In my opinion this prolonged episode of altered consciousness does not appear to be cardiac in nature
[2017-09-07 10:42] VITALS: RESP 18
--- NOTE | 2017-09-07 12:16 | MR ---
EXAMINATION TYPE: MR brain wo/w mrane wo/wcon DATE OF EXAM: 09/06/2017 7:59 PM COMPARISON: NONE HISTORY: Passed out, lightheadedness, shakey Contrast: 7 mL Gadavist Three-dimensional [id number] cervical carotid MRA was performed with multiple intensity projectio n images submitted and source data reviewed at the workstation. Pre and post contrast enhanced image s are submitted. Right carotid system: There is no significant plaque seen about the common carotid artery. Very mild plaque is also seen at the origin and proximal aspect of the right internal carotid artery. No hem odynamically significant stenosis is appreciated. Right external carotid artery right vertebral alo ry are patent. Left carotid system: Unremarkable common carotid artery is visualized. Minimal plaque origin left ICA . No hemodynamically significant stenosis is appreciated. External carotid artery and the left vert ebral artery are patent. IMPRESSION: 1. No hemodynamically significant stenosis is appreciated at this time. PRE AND POSTCONTRAST ENHANCED MRI OF THE BRAIN: CLINICAL HISTORY: Syncope CONTRAST: 7 mL Gadavist Multiplanar and multispin-echo imaging of the brain was performed both before and after the administr ation of contrast. The ventricles, basal cisterns and sulci overlying the cerebral convexities are within normal limits. There is no evidence for midline shift or mass effect. Acute intracranial hemorrhage or extra-axial collection is not evident. There are no abnormal areas of increased or decreased signal intensity within the brain parenchyma. Minimally prominent spaces of Virchow-Jermaine right basal ganglia of no clinical significance. Following contrast administration, there is no evidence for pathologic enhancement or enhancing mass. The paranasal sinuses and mastoid air cells are well-aerated. IMPRESSION: Unremarkable pre and postcontrast enhanced MRI of the brain.
[2017-09-07 13:14] VITALS: BP 109/71; PULSE 96; TEMP 97.6
--- NOTE | 2017-09-07 19:11 | EEG ---
ELECTROENCEPHALOGRAM REPORT DATE OF SERVICE: 09/07/2017 REASON FOR TESTING: Syncope. DESCRIPTION OF THE PROCEDURE: This EEG was performed using a 21-channel digital electroencephalograph, following international 10-20 system. DESCRIPTION OF THE RECORDING: From the beginning of the tracing, and with patient's eyes closed, the background rhythm was mostly consisting of 9-10 Hz alpha frequency in the posterior occipital leads. No obvious asymmetry is seen. Frequent muscle and lead artifacts are seen. Photic stimulation was performed with a minimal driving response seen. No pathological waves were elicited. Hyperventilation was performed with a minimal buildup of amplitude seen. Again, no pathological waves were elicited. The patient remains awake throughout the tracing. No epileptiform discharges were seen. INTERPRETATION: This awake EEG can be considered within normal limits. There was no asymmetry seen. No epileptiform discharges were noticed. The absence of epileptiform discharges does not rule out the diagnosis of epilepsy; therefore clinical correlation is recommended. [email or web address] / IJN: [id number] /
--- NOTE | 2017-09-14 08:14 | P.DS ---
Providers Date of admission: 09/06/17 01:08 Expected date of discharge: 09/07/17 Attending physician: Trudi Woodson Consults: 09/06/17 01:05 Consult Physician Routine Consulting Provider: Aundrea Marroquin Consult Reason/Comments: Chest pain, syncope Do you want consulting provider notified?: Yes, Notify in am Consult Physician Routine Consulting Provider: Kayley Haider Consult Reason/Comments: Syncope Do you want consulting provider notified?: Yes, Notify in am Primary care physician: Elliot Molina [facility] Course: This is a 41-year-old gentleman patient of Dr. Molina with multiple complaints on presentation, he has underlying history of hypertension, kidney stones, admitted to the emergency room with complaints of blurred vision, for the past several days now at least 2 weeks, he sought to have his eyes checked and got new glasses, this did not resolve the issue. Patient complains of blurred vision rather than diplopia, along with shortness of breath, and hematuria. Patient also has chest pain chest discomfort, and was thinking that his ribs are cracking or popping, patient denies any trauma, recently he was started on an antibiotic for urinary tract infection, against a kidney stone. They have called that the patient does not require any antibiotic eyes the cultures are negative. Patient complains of dairy daily headache, no paresthesias, he now comes in with acute syncope that started on the day of admission, patient tried to sisal picker the phone and when he bent down, he passed out and that was arm at 8:00 in the morning, and when he woke up, it was 3 hours later. Patient also mentions that this is a recurrent nature for him, and is triggered by bending or squatting. No history of seizures, he is on diuretics, and Adderall. He was admitted through the emergency room with the syncopal events, dizziness, and blurred vision consult were made with neurology and cardiology, MRI of the brain was requested, carotid Dopplers shows no hemodynamically significant stenosis, echocardiogram shows normal sinus rhythm EF 55-60%, no aortic stenosis , mild TR and mild MR, no pericardial effusion LV thickness is normal without any hypertrophic change CT of the brain shows no acute bleed or ischemic event, chest x-ray no change normal chest x-ray 09/07: Cardiogram reveals EF of 55-60%, trace mitral regurgitation, trace tricuspid regurgitation. Carotid ultrasound showed no significant stenosis. MRI and MRA of the neck reveals no hemodynamically significant stenosis. Brain MRI was unremarkable. Patient was seen in consultation by Dr. Tarango with recommendations to continue antihypertensive medicines. Patient was seen and followed by Dr. Haider thought to be cardiovascular etiology. He did recommend ophthalmology consultation for blurred vision that had been going on for several weeks but waxes and wanes. EEG was considered within normal limits. 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 Patient had normal cardiac enzymes. Losartan will be decreased. Recommend outpatient tilt table test and order was provided. Patient will be discharged home today in stable condition.. Discharge diagnoses: 1. Acute syncope with prolonged loss of consciousness 2. Blurred vision, most likely secondary to amblyopia, also has nighttime vision change, patient was counseled on vitamin A supplementation, he also has homeopathic polypharmacy 3. Hypertension 4. Daily headaches, tension headache against impaired congestive sleep, with his BMI, patient can benefit from additional studies, including outpatient sleep study, counseled regarding the use of excedrin pecially late in the afternoon and evening use 5. ADD/ADHD Discharge plan: Home Impression and plan of care have been directed as dictated by the signing physician. Libia Galeas nurse practitioner acting as scribe for signing physician. Patient Condition at Discharge: Good Plan - Discharge Summary New Discharge Prescriptions: New Atorvastatin [Lipitor] 80 mg PO HS #30 tab Losartan [Cozaar] 50 mg PO DAILY #30 tab Multivitamin [Men's Multi-Vitamin] 1 each PO DAILY #30 tablet valACYclovir HCL [Valtrex] 1,000 mg PO BID #2 tablet Continue [id number] [Excedrin] 1 - 2 tab PO Q4HR PRN PRN Reason: Migraine Headache Tamsulosin HCl [Flomax] 0.4 mg PO DAILY HYDROcodone/APAP 5-325MG [[place] 5-325] 1 tab PO Q6H PRN PRN Reason: Pain Aspirin EC [Ecotrin Low Dose] 81 mg PO DAILY Dextroamphetamine/Amphetamine [Adderall] 15 mg PO DAILY ALPRAZolam [Xanax] 0.5 mg PO Q8HR Discontinued Losartan/Hydrochlorothiazide [Hyzaar 100-25 Tablet] 1 tab PO DAILY Zinc Picolinate 1 cap PO DAILY Reishi 1 cap PO DAILY Phospatidyl Choline 1 cap PO DAILY Grass Fed Organ Complex 1 cap PO DAILY C-Salts Buffered Vitamin C 1 tsp PO DAILY [place] 1 cap PO DAILY No Action HYDROcodone/APAP 7.5-325MG [[place] 7.5-325] 1 tab PO Q6HR PRN #18 tab PRN Reason: Pain Ibuprofen [Motrin] 600 mg PO Q8HR PRN #24 tab PRN Reason: Pain Tamsulosin [Flomax] 0.4 mg PO DAILY #14 cap Ondansetron Odt [Zofran Odt] 4 mg PO Q8HR PRN #10 tab PRN Reason: Vomiting Discharge Medication List Aspirin EC [Ecotrin Low Dose] 81 mg PO DAILY 09/05/17 [History] [id number]-[id number] [id number] [Excedrin] 1 - 2 tab PO Q4HR PRN 09/05/17 [ History] Dextroamphetamine/Amphetamine [Adderall] 15 mg PO DAILY 09/05/17 [History] HYDROcodone/APAP 5-325MG [[place] 5-325] 1 tab PO Q6H PRN 09/05/17 [History] Tamsulosin HCl [Flomax] 0.4 mg PO DAILY 09/05/17 [History] ALPRAZolam [Xanax] 0.5 mg PO Q8HR 09/06/17 [History] Atorvastatin [Lipitor] 80 mg PO HS #30 tab 09/07/17 [Rx] Losartan [Cozaar] 50 mg PO DAILY #30 tab 09/07/17 [Rx] Multivitamin [Men's Multi-Vitamin] 1 each PO DAILY #30 tablet 09/07/17 [Rx] valACYclovir HCL [Valtrex] 1,000 mg PO BID #2 tablet 09/07/17 [Rx] HYDROcodone/APAP 7.5-325MG [[place] 7.5-325] 1 tab PO Q6HR PRN #18 tab 09/12/17 [ Rx] Ibuprofen [Motrin] 600 mg PO Q8HR PRN #24 tab 09/12/17 [Rx] Ondansetron Odt [Zofran Odt] 4 mg PO Q8HR PRN #10 tab 09/12/17 [Rx] Tamsulosin [Flomax] 0.4 mg PO DAILY #14 cap 09/12/17 [Rx] Follow up Appointment(s)/Referral(s): Cory Tarango MD [STAFF PHYSICIAN] - 1 Week (Office to call patient with follow up appointment or instructions on tilt table exam appointment.) Amaris Lopez MD [STAFF PHYSICIAN] - 09/09/17 2:00 pm ([employer].) Kayley Haider MD [STAFF PHYSICIAN] - 3 Weeks (Office to call you with follow up appointment. ) Elliot Molina DO [Primary Care Provider] - 1 Week (Please keep previous appointment for the 20th.) Patient Instructions/Handouts: Syncope (DC), Tilt Table Test (DC) Activity/Diet/Wound Care/Special Instructions: Tilt table test-prescription given. Discharge Disposition: HOME SELF-CARE
== END 2017-09-07 14:33 | disposition home or self-care (01) ==
LOC: EC 21:29 → 6SEL 09-06 01:08
PROVIDERS: ADMIT Family Medicine; ATTEND Family Medicine
DX: R55 Syncope and collapse (principal); R07.89 Other chest pain; H53.8 Other visual disturbances; R06.02 Shortness of breath; R52 Pain, unspecified; G44.209 Tension-type headache, unspecified, not intractable; F90.9 Attention-deficit hyperactivity disorder, unspecified type; I10 Essential (primary) hypertension; F41.9 Anxiety disorder, unspecified; R00.0 Tachycardia, unspecified; R31.9 Hematuria, unspecified; Z83.3 Family history of diabetes mellitus; Z79.82 Long term (current) use of aspirin; Z79.899 Other long term (current) drug therapy; Z87.442 Personal history of urinary calculi; Z82.49 Family history of ischemic heart disease and other diseases of the circulatory system; Z82.5 Family history of asthma and other chronic lower respiratory diseases; Z82.3 Family history of stroke; Z80.9 Family history of malignant neoplasm, unspecified; E66.9 Obesity, unspecified; Z68.36 Body mass index [BMI] 36.0-36.9, adult; W19.XXXA Unspecified fall, initial encounter; Y92.003 Bedroom of unspecified non-institutional (private) residence as the place of occurrence of the external cause
CPT/HCPCS: 99291 ×2; 36415; 95816; 93005; 97161; 97165; 92523; 85379; 80061; 80053; 84443; 83735; 84484; 85025; 85610; 71046; 93880; 70450; 70549; 70553; G0378 ×2; C8929; A9581; Q9950; 93306

== ENCOUNTER 2017-09-12 02:56 | Emergency (ER) | payer OTHER ==
[2017-09-12] MEDS ORDERED: MORPHINE SULFATE 4 MG/ML SYRINGE IV STA (03:14)
[2017-09-12] MEDS ORDERED: ONDANSETRON 4 MG/2 ML VIAL IVP STA (03:14)
[2017-09-12] MEDS ORDERED: SODIUM CHLORIDE 0.9% 1,000 ML IV STA (03:14)
[2017-09-12] MEDS ORDERED: KETOROLAC 30 MG/ML 1 ML VIAL IVP STA (03:14)
[2017-09-12] MEDS ORDERED: MORPHINE SULFATE/PF 10MG/10ML VL IV STA (03:19)
--- NOTE | 2017-09-12 03:19 | ED ---
General Adult HPI - General Source: patient, RN notes reviewed Mode of arrival: ambulatory Limitations: no limitations <Amanda Richey - Last Filed: 09/12/17 03:39> <Harjit Powers - Last Filed: 09/12/17 04:34> - General Chief complaint: Abdominal Pain Stated complaint: kidney pain Time Seen by Provider: 09/12/17 03:11 - History of Present Illness Initial comments: 41-year-old male presents to the emergency department with a chief complaint of right-sided flank pain and dysuria. Patient has a long history of kidney stones. He states he's been having this pain that this started today but really worsened around midnight. Patient states he's had nausea no vomiting. He denies any fever chills. They were concerned due to the patient's continued pain so he thought that he should be seen. He tried Flomax without much improvement. He states he is just getting dribbling of urine. Patient denies any recent fever, chills, shortness of breath, chest pain, back pain, abdominal pain, nausea vomiting, numbness or tingling, constipation or diarrhea, headaches or visual changes, or any other current symptoms. (Amanda Richey) - Related Data Home Medications Medication Instructions Recorded Confirmed Aspirin EC [Ecotrin Low Dose] 81 mg PO DAILY 09/05/17 09/06/17 [id number] 1 - 2 tab PO Q4HR PRN 09/05/17 09/06/17 [Excedrin] Dextroamphetamine/Amphetamine 15 mg PO DAILY 09/05/17 09/06/17 [Adderall] HYDROcodone/APAP 5-325MG [[place] 1 tab PO Q6H PRN 09/05/17 09/06/17 5-325] Tamsulosin HCl [Flomax] 0.4 mg PO DAILY 09/05/17 09/06/17 ALPRAZolam [Xanax] 0.5 mg PO Q8HR 09/06/17 09/06/17 Previous Rx's Medication Instructions Recorded Atorvastatin [Lipitor] 80 mg PO HS #30 tab 09/07/17 Losartan [Cozaar] 50 mg PO DAILY #30 tab 09/07/17 Multivitamin [Men's Multi-Vitamin] 1 each PO DAILY #30 tablet 09/07/17 valACYclovir HCL [Valtrex] 1,000 mg PO BID #2 tablet 09/07/17 HYDROcodone/APAP 7.5-325MG [[place] 1 tab PO Q6HR PRN #18 tab 09/12/17 7.5-325] Ibuprofen [Motrin] 600 mg PO Q8HR PRN #24 tab 09/12/17 Tamsulosin [Flomax] 0.4 mg PO DAILY #14 cap 09/12/17 Allergies Allergy/AdvReac Type Severity Reaction Status Date / Time No Known Allergies Allergy Verified 09/12/17 03:01 Review of Systems ROS Other: All systems not noted in ROS Statement are negative. <Amanda Richey - Last Filed: 09/12/17 03:39> ROS Other: All systems not noted in ROS Statement are negative. <Harjit Powers - Last Filed: 09/12/17 04:34> ROS Statement: Those systems with pertinent positive or pertinent negative responses have been documented in the HPI. Past Medical History Past Medical History: Hypertension Additional Past Medical History / Comment(s): kidney stones, patient states he used to be an insulin dependent diabetic but he since has lost weight and does not take any medications for diabetes History of Any Multi-Drug Resistant Organisms: None Reported Past Surgical History: No Surgical Hx Reported Past Anesthesia/Blood Transfusion Reactions: No Reported Reaction Additional Past Anesthesia/Blood Transfusion Reaction / Comment(s): He is scheduled to have colonoscopy with Dr. gunderson on September 08, secondary to hemorrhoid bleed Past Psychological History: Anxiety Smoking Status: Never smoker Past Alcohol Use History: None Reported Past Drug Use History: None Reported - Past Family History Father Family Medical History: CVA/TIA, Diabetes Mellitus Mother Family Medical History: Cancer Additional Family Medical History / Comment(s): Emphysema <Amanda Richey - Last Filed: 09/12/17 03:39> General Exam Limitations: no limitations <Amanda Richey - Last Filed: 09/12/17 03:39> <Harjit Powers - Last Filed: 09/12/17 04:34> - General Exam Comments Initial Comments: General: The patient is awake and alert, in no distress, and does not appear acutely ill. Eye: Pupils are equal, round and reactive to light, extra-ocular movements are intact; there is normal conjunctiva bilaterally. No signs of icterus. Ears, nose, mouth and throat: There are moist mucous membranes. Neck: The neck is supple, there is no tenderness. Cardiovascular: There is a regular rate and rhythm. No murmur, rub or gallop is appreciated. Respiratory: Lungs are clear to auscultation, respirations are non-labored, breath sounds are equal. No wheezes, stridor, rales, or rhonchi. Gastrointestinal: Soft, non-distended, non-tender abdomen without masses or organomegaly noted. There is no rebound or guarding present. No CVA tenderness. Bowel sounds are unremarkable. Back: There is no tenderness to palpation in the midline. There is no obvious deformity. No rashes noted. Musculoskeletal: Normal ROM, no tenderness, There is no pedal edema. There is no calf tenderness or swelling. Sensation intact. Pulses equal bilaterally 2+. Neurological: CN II-XII intact, There are no obvious motor or sensory deficits. Coordination appears grossly intact. Speech is normal. Skin: Skin is warm and dry and no rashes or lesions are noted. Psychiatric: Cooperative, appropriate mood & affect, normal judgment. (Amanda Richey) Course <Amanda Richey - Last Filed: 09/12/17 03:39> <Harjit Powers - Last Filed: 09/12/17 04:34> Vital Signs 09/12/17 02:59 Temperature 97.7 F Pulse Rate 69 Respiratory 16 Rate Blood Pressure 159/94 O2 Sat by Pulse 100 Oximetry - Reevaluation(s) Reevaluation #1: 09/12/17 03:39 THis case will be signed out to DR. Powers. (Amanda Richey) Medical Decision Making <Amanda Richey - Last Filed: 09/12/17 03:39> - Lab Data Result diagrams: 09/12/17 03:35 09/12/17 03:35 <Harjit Powers - Last Filed: 09/12/17 04:34> - Medical Decision Making 41-year-old male presents for right flank pain and dysuria. (Amanda Richey) 41-year-old male presenting with right flank pain, history of renal stones. Laboratory studies are obtained, stable normal hemoglobin, normal kidney function, urinalysis does show 121 rbc's consistent with renal stone. CT is obtained, shows a 7 mm proximal right ureter stone with mild [place]. On reevaluation, patient is comfortable, pain is significantly improved. He does not want to stay in the hospital, he would prefer outpatient follow-up. He is given pain medication and will call urology in the morning. (Harjit Powers ) - Lab Data Lab Results 09/12/17 09/12/17 09/12/17 Range/Units 03:35 03:35 03:35 WBC 10.9 H (3.8-10.6) k/uL RBC 4.51 (4.30-5.90) m/uL Hgb 14.3 (13.0-17.5) gm/dL Hct 43.6 (39.0-53.0) % MCV 96.6 (80.0-100.0) fL MCH 31.6 (25.0-35.0) pg MCHC 32.7 (31.0-37.0) g/dL RDW 13.2 (11.5-15.5) % Plt Count 213 (150-450) k/uL Neutrophils % 66 % Lymphocytes % 24 % Monocytes % 5 % Eosinophils % 3 % Basophils % 0 % Neutrophils # 7.1 (1.3-7.7) k/uL Lymphocytes # 2.6 (1.0-4.8) k/uL Monocytes # 0.6 (0-1.0) k/uL Eosinophils # 0.4 (0-0.7) k/uL Basophils # 0.0 (0-0.2) k/uL Sodium 143 (137-145) mmol/L Potassium 4.5 (3.5-5.1) mmol/L Chloride 109 H (98-107) mmol/L Carbon Dioxide 24 (22-30) mmol/L Anion Gap 10 mmol/L BUN 15 (9-20) mg/dL Creatinine 0.90 (0.66-1.25) mg/dL Est GFR (CKD-EPI)AfAm >90 (>60 ml/min/1.73 sqM) Est GFR (CKD-EPI)NonAf >90 (>60 ml/min/1.73 sqM) Glucose 107 H (74-99) mg/dL Calcium 9.5 (8.4-10.2) mg/dL Total Bilirubin 0.4 (0.2-1.3) mg/dL AST 26 (17-59) U/L ALT 35 (21-72) U/L Alkaline Phosphatase 72 (38-126) U/L Total Protein 6.9 (6.3-8.2) g/dL Albumin 4.0 (3.5-5.0) g/dL Urine Color Yellow Urine Appearance Clear (Clear) Urine pH 5.0 (5.0-8.0) Ur Specific Bells 1.026 (1.001-1.035) Urine Protein Trace H (Negative) Urine Glucose (UA) Negative (Negative) Urine Ketones Trace H (Negative) Urine Blood Trace H (Negative) Urine Nitrite Negative (Negative) Urine Bilirubin Negative (Negative) Urine Urobilinogen <2.0 (<2.0) mg/dL Ur Leukocyte Esterase Negative (Negative) Urine RBC 121 H (0-5) /hpf Urine WBC 6 H (0-5) /hpf Hyaline Casts 1 (0-2) /lpf Urine Mucus Rare H (None) /hpf Disposition <Amanda Richey - Last Filed: 09/12/17 03:39> Time of Disposition: 04:32 <Harjit Powers - Last Filed: 09/12/17 04:34> Clinical Impression: Calculus of kidney Disposition: HOME SELF-CARE Condition: Good Instructions: Kidney Stones (ED) Prescriptions: HYDROcodone/APAP 7.5-325MG [[place] 7.5-325] 1 tab PO Q6HR PRN #18 tab PRN Reason: Pain Ibuprofen [Motrin] 600 mg PO Q8HR PRN #24 tab PRN Reason: Pain Tamsulosin [Flomax] 0.4 mg PO DAILY #14 cap Referrals: Elliot Molina DO [Primary Care Provider] - 1-2 days Roc Tompkins MD [STAFF PHYSICIAN] - 1-2 days
[2017-09-12 03:44] LABS: Basophils % (A) 0 %; Eosinophils # (A) 0.4 k/uL (0-0.7); Eosinophils % (A) 3 %; HCT 43.6 % (39.0-53.0); HGB 14.3 gm/dL (13.0-17.5); Lymphocytes # (A) 2.6 k/uL (1.0-4.8); Lymphocytes % (A) 24 %; MCH 31.6 pg (25.0-35.0); MCHC 32.7 g/dL (31.0-37.0); MCV 96.6 fL (80.0-100.0); Mean Platelet Volume 7.4; Monocytes # (A) 0.6 k/uL (0-1.0); Monocytes % (A) 5 %; Neutrophils # (A) 7.1 k/uL (1.3-7.7); Neutrophils % (A) 66 %; Platelet Count 213 k/uL (150-450); RBC 4.51 m/uL (4.30-5.90); RDW 13.2 % (11.5-15.5); WBC 10.9 k/uL (3.8-10.6)
[2017-09-12 03:47] LABS: Appearance,Urine Clear (Clear); Bilirubin,Urine Negative (Negative); Blood,Urine Trace (Negative); Color,Urine Yellow; Glucose,Urine (UA) Negative (Negative); Hyaline Casts,Urine 1 /lpf (0-2); Ketones,Urine Trace (Negative); Leukocyte Esterase,Urine Negative (Negative); Mucus,Urine Rare /hpf; Nitrite,Urine Negative (Negative); Protein,Urine Trace (Negative); RBC,Urine 121 /hpf (0-5); Specific Gravity,Urine 1.026 (1.001-1.035); Urobilinogen,Urine <2.0 mg/dL (<2.0); WBC,Urine 6 /hpf (0-5)
[2017-09-12 03:55] LABS: ALT 35 U/L (21-72); AST 26 U/L (17-59); Alkaline Phosphatase 72 U/L (38-126); Anion Gap 10 mmol/L; Blood Urea Nitrogen 15 mg/dL (9-20); Calcium 9.5 mg/dL (8.4-10.2); Carbon Dioxide 24 mmol/L (22-30); Chloride 109 mmol/L (98-107); Glucose 107 mg/dL (74-99); Potassium 4.5 mmol/L (3.5-5.1); Sodium 143 mmol/L (137-145); Total Bilirubin 0.4 mg/dL (0.2-1.3); Total Protein 6.9 g/dL (6.3-8.2)
--- NOTE | 2017-09-12 04:16 | CT ---
EXAM: CT Abdomen and Pelvis Without Intravenous Contrast CLINICAL HISTORY: ITS.REASON CT Reason: Pain TECHNIQUE: Axial computed tomography images of the abdomen and pelvis without intravenous contrast. CTDI is 21.1 mGy and DLP is 1139.8 mGy-cm. This CT exam was performed using one or more of the following dose reduction techniques: automated exposure control, adjustment of the mA and/or kV according to patient size, and/or use of iterative reconstruction technique. COMPARISON: None. FINDINGS: Lower thorax: No acute findings. ABDOMEN: Liver: Diffuse hepatic steatosis with focal fatty sparing near the gallbladder fossa. Gallbladder and bile ducts: Unremarkable. No calcified stones. No ductal dilation. Pancreas: Unremarkable. No ductal dilation. Spleen: Unremarkable. No splenomegaly. Adrenals: Unremarkable. No mass. Kidneys and ureters: 2 nonobstructing right renal calculi measuring up to 5 mm. 7 mm calculus within the proximal right ureter resulting in mild hydronephrosis. Stomach and bowel: Mild diverticulosis without evidence of diverticulitis. No obstruction. Appendix: No findings to suggest acute appendicitis. PELVIS: Bladder: Unremarkable. No stones. Reproductive: Unremarkable as visualized. ABDOMEN and PELVIS: Intraperitoneal space: Unremarkable. No free air. No significant fluid collection. Bones/joints: 13 mm sclerotic lesion within the left femoral neck presumably represents a bone island. Soft tissues: Unremarkable. Vasculature: Unremarkable. No abdominal aortic aneurysm. Lymph nodes: Unremarkable. No enlarged lymph nodes. IMPRESSION: 7 mm calculus within the proximal right ureter resulting in mild hydronephrosis.
[2017-09-12] MEDS ORDERED: MORPHINE SULFATE/PF 10MG/10ML VL IVP STA (04:29)
[2017-09-12] MEDS ORDERED: MORPHINE SULFATE 4 MG/ML SYRINGE IV PRN (05:00)
[2017-09-12] MEDS ORDERED: 0.9% NACL WITH KCL 20 MEQ/L 1,000 ML IV SCH (05:00)
[2017-09-12] MEDS ORDERED: NALOXONE 0.4 MG/ML 1 ML VIAL IV PRN (05:00)
--- NOTE | 2017-09-12 05:15 | XR ---
EXAM: XR Abdomen, 1 View CLINICAL HISTORY: ITS.REASON XR Reason: Pain TECHNIQUE: Frontal supine view of the abdomen/pelvis. COMPARISON: CT abdomen pelvis dated 09/12/2017. FINDINGS: Gastrointestinal tract: Unremarkable. No dilation. Organs: Reidentified right renal/ureteral calculi measuring up to 8 mm. impression. Bones/joints: Unremarkable. IMPRESSION: No acute findings.
[2017-09-12 05:16] VITALS: BP 136/62; PULSE 75; RESP 18; TEMP 98
== END 2017-09-12 05:16 | disposition home or self-care (01) ==
LOC: EC 02:56
DX: N13.2 Hydronephrosis with renal and ureteral calculous obstruction (principal); F41.9 Anxiety disorder, unspecified; Z87.442 Personal history of urinary calculi; Z79.82 Long term (current) use of aspirin; Z79.899 Other long term (current) drug therapy
CPT/HCPCS: 99284 ×2; 96374 ×2; 96375 ×3; 96361 ×3; 96376 ×2; 51798; 36415; 80053; 85025; 81001; 87086; 74018; 74176; J2405; J1885; J2270

== ENCOUNTER 2018-02-20 07:42 | Day surgery (SDC) | payer OTHER ==
[2018-02-16 13:52] VITALS: BMI 35.9
[~2018-02-20 07:42] MED LIST: LACTATED RINGERS 1,000 ML IV SCH
[2018-02-20 08:02] VITALS: TEMP 98.6
[2018-02-20] MEDS ORDERED: LIDOCAINE 1% INJ 10MG/ML (20 ML MDV) ONE (08:50)
[2018-02-20] MEDS ORDERED: PROPOFOL 10 MG/ML 20 ML VIAL IV ONE (08:50)
--- NOTE | 2018-02-20 09:06 | P.GSHP ---
History of Present Illness H&P Date: 02/20/18 Chief Complaint: GI bleed, hemorrhoids This a 42-year-old male referred from Dr. Molina. Patient rents today for colonoscopy. He's had issues with hemorrhoids and GI bleed. Past Medical History Past Medical History: Hypertension Additional Past Medical History / Comment(s): Hx kidney stones, History of Any Multi-Drug Resistant Organisms: None Reported Past Surgical History: No Surgical Hx Reported Additional Past Surgical History / Comment(s): Lithotripsy x2 Past Anesthesia/Blood Transfusion Reactions: No Reported Reaction Additional Past Anesthesia/Blood Transfusion Reaction / Comment(s): He is scheduled to have colonoscopy with Dr. gunderson on September 08, secondary to hemorrhoid bleed Smoking Status: Never smoker - Past Family History Father Family Medical History: CVA/TIA, Diabetes Mellitus Mother Family Medical History: Cancer Additional Family Medical History / Comment(s): Emphysema Medications and Allergies Home Medications Medication Instructions Recorded Confirmed Type Aspirin EC [Ecotrin Low Dose] 81 mg PO DAILY 09/05/17 02/20/18 History Dextroamphetamine/Amphetamine 15 mg PO DAILY 09/05/17 02/20/18 History [Adderall] ALPRAZolam [Xanax] 0.5 mg PO Q8HR PRN 09/06/17 02/20/18 History Losartan [Cozaar] 50 mg PO DAILY #30 tab 09/07/17 02/20/18 Rx Multivitamin [Men's Multi-Vitamin] 1 each PO DAILY #30 tablet 09/07/17 02/20/18 Rx Ibuprofen [Motrin] 600 mg PO Q8HR PRN #24 tab 09/12/17 02/20/18 Rx Allergies Allergy/AdvReac Type Severity Reaction Status Date / Time No Known Allergies Allergy Verified 02/16/18 13:44 Surgical - Exam Vital Signs Temp Pulse Resp BP Pulse Ox 98.6 F 87 18 142/90 96 02/20/18 08:00 02/20/18 08:00 02/20/18 08:00 02/20/18 08:00 02/20/18 08:00 - General well developed, no distress - Eyes PERRL - ENT normal pinna - Neck no masses - Respiratory normal expansion - Cardiovascular Rhythm: regular - Abdomen Abdomen: soft, non tender Assessment and Plan Assessment: GI bleed, hemorrhoids. We'll perform colonoscopy.
--- NOTE | 2018-02-20 09:21 | P.OP ---
Date of Procedure: 02/20/18 Preoperative Diagnosis: GI bleed Internal hemorrhoids Postoperative Diagnosis: Internal and external hemorrhoids No evidence of GI bleed Procedure(s) Performed: Colonoscopy Anesthesia: MAC Surgeon: Miller Mcintyre Pathology: none sent Condition: stable Disposition: PACU Description of Procedure: The patient's placed on the endoscopy table in the lateral position. He received IV sedation. Digital rectal exam was performed which revealed internal and external hemorrhoids. Flexible colonoscope was then placed patient anus and passed throughout the entire colon. The ileocecal valve was visualized. The cecum, ascending and transverse colon appeared normal. The descending; was normal. Scope was then brought back the rectum this appeared normal. Scope was withdrawn for patient.
[2018-02-20 09:37] VITALS: BP 116/82; PULSE 77; RESP 18
== END 2018-02-20 09:50 | disposition home or self-care (01) ==
LOC: ORWHC2ENDO 07:42
PROVIDERS: ATTEND Surgery
DX: K92.2 Gastrointestinal hemorrhage, unspecified (principal); K64.4 Residual hemorrhoidal skin tags; K64.8 Other hemorrhoids; I10 Essential (primary) hypertension; Z87.442 Personal history of urinary calculi; Z83.3 Family history of diabetes mellitus; Z82.49 Family history of ischemic heart disease and other diseases of the circulatory system; Z79.1 Long term (current) use of non-steroidal anti-inflammatories (NSAID); Z79.82 Long term (current) use of aspirin; Z79.899 Other long term (current) drug therapy
CPT/HCPCS: 45378; J2001; J2704

== ENCOUNTER → 2018-06-05 | Outpatient (CLI) | payer OTHER ==
--- NOTE | 2018-06-05 15:22 | XR ---
EXAMINATION TYPE: XR Hip Bilateral Complete DATE OF EXAM: 06/05/2018 COMPARISON: None HISTORY: Pain TECHNIQUE: Two-view bilateral hips FINDINGS: Right hip: Femoral head articulates with the acetabulum. Joint spaces preserved. No acute f racture is evident. Left hip:Femoral head articulates with the acetabulum. Joint spaces preserved. No acute fracture is e vident. IMPRESSION: 1. Normal bilateral hips
--- NOTE | 2018-06-05 16:20 | XR ---
EXAMINATION TYPE: XR lumbosacral spine min 4V DATE OF EXAM: 06/05/2018 COMPARISON: None HISTORY: Low back pain TECHNIQUE: Five-view lumbar spine FINDINGS: There 5 lumbar-type vertebral bodies. Pedicles are intact. Mild facet degenerative changes present throughout the lumbar spine. Spondylosis is present. There is loss of disc height throughout the lumbar spine. Some vacuum disc phenomenon is noted L2-3, L5-S1. Some degenerative disc change and vacuum disc phenomenon is also present within the lower thoracic spine within the [id number]. Ali gnment is preserved. IMPRESSION: 1. Degenerative disc changes throughout the lumbar spine. 2. Mild diffuse degenerative facet changes throughout the lumbar spine.
== END | disposition home or self-care (01) ==
LOC: RADXRMAIN 14:19
PROVIDERS: ATTEND Family Medicine
DX: M51.36 Other intervertebral disc degeneration, lumbar region (principal); M47.816 Spondylosis without myelopathy or radiculopathy, lumbar region; M25.551 Pain in right hip; M25.552 Pain in left hip
CPT/HCPCS: 72110; 73521

== ENCOUNTER → 2018-07-03 | Outpatient (CLI) | payer OTHER ==
--- NOTE | 2018-07-03 21:05 | MR ---
EXAMINATION TYPE: MR sow wo con DATE OF EXAM: 07/03/2018 COMPARISON: None HISTORY: Neck & lower back pain, headaches, LLE pain x 3 mos, fell down steps CONTRAST: Performed utilizing 0 mL intravenous Gadavist gadolinium contrast. TECHNIQUE: Multiplanar multiecho imaging on a 3.0 Henny magnet is performed through the cervical spin e. FINDINGS: The craniovertebral junction is normal. Vertebral body alignment is normal. C7-T1: No focal disc herniation or significant disc bulge is evident. No spinal canal stenosis or n eural foraminal stenosis is present. C6-7: Broad-based disc bulge has moderate anterior thecal sac compression. Some cord flattening may b e present. Borderline 0.8 cm spinal canal stenosis is present. There appears to be bilateral severe f oraminal narrowing. C5-6: There is a large left paracentral disc bulge which extends from the central region to the left foramen. This has moderate anterior thecal sac compression without cord contact. Mild spinal canal st enosis is present. Correlate with left radicular symptoms. Severe left foraminal stenosis present. Mo derate right foraminal stenosis is present. C4-5: There appears to be a tiny central subligamentous disc herniation with minimal anterior thecal sac compression. No AP spinal canal stenosis is present. No cord contact is evident.. C3-4: No focal disc herniation or significant disc bulge is evident. No spinal canal stenosis or bruce ral foraminal stenosis is present. C2-3: No focal disc herniation or significant disc bulge is evident. No spinal canal stenosis or bruce ral foraminal stenosis is present. IMPRESSIONS: 1. Large left paracentral disc bulge at C5-6 has moderate anterior thecal sac compression without cor d contact. Some stenosis posterior to the disc bulge is present and there is severe left foraminal st enosis at this level. Correlate with left C5 radicular symptoms. 2. Broad-based disc bulges C6-7 has moderate anterior thecal sac compression and some cord flattening borderline spinal canal stenosis is present at this level. EXAMINATION TYPE: MR sow wo con DATE OF EXAM: 07/03/2018 COMPARISON: None HISTORY: Neck & lower back pain, headaches, LLE pain x 3 mos, fell down steps CONTRAST: 0 mL intravenous Gadavist. TECHNIQUE: Multiplanar, multisequence images of the lumbar spine were acquired. FINDINGS: L5-S1: Large right paracentral and central disc herniation has moderate to marked anterior thecal sac compression. There is a spinal canal stenosis of 0.76 centimeters facet hypertrophy is present and t here is severe right and moderate to severe left foraminal stenosis. L4-L5: Disc space narrowing is present. There is a central subligamentous disc herniation with modera te anterior thecal sac compression. AP spinal canal stenosis is not present. Facet hypertrophy and li gamentum flavum laxity is mild posterior lateral thecal sac compression. There is severe right and mi ld left foraminal stenosis. Some disc material contact with the exiting nerve root on the right may b e present. L3-L4: Disc space narrowing is present. Some endplate changes are present. No spinal canal stenosis i s present. There is moderate left foraminal stenosis and no right foraminal stenosis. L2-L3: Broad-based disc bulge is anterior thecal sac contact. Facet hypertrophy is present with poste rior lateral thecal sac compression. Neural foramen are patent. Endplate changes are present. L1-L2: Subligamentous disc herniation is present with mild anterior thecal sac compression. No AP spi nal canal stenosis is present. Neural foramen are patent. T12-L1: No significant disc bulge or disc herniation. No spinal canal stenosis. No foraminal stenos is. Cord terminates at the L1-2 level IMPRESSION: 1. Large central and right paracentral disc herniation L4-5 with spinal canal stenosis and marked ant erior thecal sac compression. 2. Severe right and moderate left foraminal stenosis due to disc bulging L5-S1. 3. Central subligamentous disc herniation with moderate anterior thecal sac compression at L4-5. 4. Small subligamentous disc herniation with mild anterior thecal sac compression at L1-2
== END | disposition home or self-care (01) ==
LOC: RADMRIMAIN 19:36
PROVIDERS: ATTEND Family Medicine
DX: M48.061 Spinal stenosis, lumbar region without neurogenic claudication (principal); M99.73 Connective tissue and disc stenosis of intervertebral foramina of lumbar region; M51.16 Intervertebral disc disorders with radiculopathy, lumbar region; M48.02 Spinal stenosis, cervical region; M50.121 Cervical disc disorder at C4-C5 level with radiculopathy
CPT/HCPCS: 72141; 72148